=== PATIENT | male | born 1965 | race Caucasian/White ===

== ENCOUNTER → 2020-10-02 14:50 | Outpatient (BNVA) | payer OTHER, SELFPAY | PROVIDERS: PCP Internal Medicine Geriatric Medicine; Visit Provider Physician Assistant Medical | DX: S39.92XA Unspecified injury of lower back, initial encounter (principal); X58.XXXA Exposure to other specified factors, initial encounter | CPT/HCPCS: 99203 ==

== ENCOUNTER → 2020-10-16 15:16 | Outpatient (BNVA) | payer OTHER, SELFPAY | PROVIDERS: PCP Internal Medicine Geriatric Medicine; Visit Provider Physician Assistant Medical | DX: S39.92XD Unspecified injury of lower back, subsequent encounter (principal); X58.XXXD Exposure to other specified factors, subsequent encounter | CPT/HCPCS: 99213 ==

== ENCOUNTER 2020-11-04 16:00 | Outpatient (RCR) | payer OTHER, SELFPAY ==
--- NOTE | 2020-10-15 10:15 | MHC.PT.EP ---
[facility] [place] Office [place] Office [place] Office [address] Edil Saravia [address] [phone] F: [phone] F: [phone] F: [phone] F: [phone] Physical Therapy Plan of Care Date of Evaluation: Date of Surgery: Diagnosis: Assessment: Pt is a 54yo M who presents to PT with low back pain at lumbar level, and denies radiating symptoms. 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 He is limited functionally by prolonged sitting, standing, lifting, pushing, and pulling. He is an excellent candidate for skilled PT services to address current impairments and facilitate return to PLOF. Frequency and Duration: The patient will be seen 2x/week for 3 weeks Short Term Goals: Pt will be I with HEP to promote self management of symptoms. Pt will report pain 3/10 or less after functional mobility Shelter Goals: Pt will demonstrate full, pain-free ROM throughout all planes lumbar spine. Pt will tolerate standing >30 min without pain to assist with work related tasks. Pt will lift at least 10# with proper body mechanics without pain to assist with work related tasks. Treatment Plan: Modalities to reduce pain, spasms and effusion. Manual therapy to restore motion and function. Therapeutic exercise to improve strength and flexibility. Neuromuscular re-education for posture and balance. Therapeutic activities to return to functional activities of daily living. Electronically signed by: Natasha Hairston, PT, DPT Please sign and return to therapist. Thank you for your referral.
--- NOTE | 2020-11-04 18:31 | MHC.PT.DC ---
[facility] [place] Office [place] Office [place] Office [address] Edil Saravia [address] [phone] F: [phone] F: [phone] F: [phone] F: [phone] Physical Therapy Discharge Report Diagnosis: Date of Surgery: Date of Evaluation: 10/14/20 Date of Discharge: 11/04/20 Treatments to Date: 6 Cancellations to Date: No Shows to Date: Discharge Status: Achieved Goals Improved Function Independent with HEP Discharge Summary: Pt has made good improvements since SOC but has reached a functional plateau at this time. It is recommended at this time he transitions to consistent HEP and if his symptoms do not improve he is recommended to follow up with his doctor. His standing tolerance has improved to 45 minutes and he demonstrates improved squatting mechanics. He is able to run 6-8 miles with a relief of symptoms. He has printed copy of HEP with green thera band. Pt is I with HEP and is being D/C from skilled PT services this date. Pt reports no questions or concerns for PT at this time. Electronically signed by: Natasha Hairston, PT, DPT Please sign and return to therapist. Thank you for your referral.
== END 2020-11-04 18:28 | disposition home or self-care (01) ==
LOC: HO.PT 16:00
PROVIDERS: Visit Provider Physician Assistant Medical
DX: M54.5 Low back pain (principal)
CPT/HCPCS: 97110; 97161; 97530

== ENCOUNTER → 2020-11-07 15:42 | Outpatient (BNVA) | payer OTHER, SELFPAY | PROVIDERS: PCP Internal Medicine Geriatric Medicine; Visit Provider Physician Assistant Medical | DX: S34.4XXD Injury of lumbosacral plexus, subsequent encounter (principal); X58.XXXD Exposure to other specified factors, subsequent encounter | CPT/HCPCS: 99213 ==

== ENCOUNTER → 2020-11-19 15:01 | Outpatient (BNVA) | payer OTHER, SELFPAY | PROVIDERS: PCP Internal Medicine Geriatric Medicine; Visit Provider Physician Assistant Medical | DX: S33.9XXD Sprain of unspecified parts of lumbar spine and pelvis, subsequent encounter (principal); X58.XXXD Exposure to other specified factors, subsequent encounter | CPT/HCPCS: 99213 ==

== ENCOUNTER → 2020-11-21 12:57 | Outpatient (BNVA) | payer OTHER, SELFPAY | PROVIDERS: PCP Internal Medicine Geriatric Medicine; Referring Provider Internal Medicine Geriatric Medicine; Visit Provider Nurse Practitioner Family ==

== ENCOUNTER 2020-11-25 23:23 | Emergency (ER) | payer OTHER, SELFPAY ==
--- NOTE | ~2020-11-25 | CT_ITS ---
EXAMINATION: CT ABDOMEN AND PELVIS WITH CONTRAST CLINICAL INFORMATION: Left lower quadrant pain and tenderness, rule out diverticulitis COMPARISON: None TECHNIQUE: Multidetector volumetric images were obtained from the superior aspect of the liver through the pubic symphysis following administration 85 mL of Omnipaque 350 intravenous contrast. Sagittal and coronal reformatted images were obtained on the technologist's workstation. Oral contrast: No This CT examination was performed using dose optimization techniques as appropriate, variously including the following: *Automated exposure control *Adjustment of mA and/or kV according to patient size (this includes techniques or standardized protocols for targeted exams where dose is matched to indication/reason for exam; i.e. extremities or head) *Use of iterative reconstruction technique DLP: 1071 mGy-cm FINDINGS: LUNG BASES: The visualized lung bases are unremarkable. LIVER, GALLBLADDER, AND BILIARY TREE: The liver is normal in size, shape, and attenuation. No focal hepatic lesion or biliary ductal dilatation is present. The gallbladder is unremarkable with no evidence of radiopaque gallstones, gallbladder wall thickening, or obvious pericholecystic inflammatory changes. PANCREAS: Unremarkable. SPLEEN: Unremarkable. ADRENAL GLANDS: Unremarkable. KIDNEYS AND URETERS: The kidneys are normal in size, shape, and attenuation. Cyst in the region of the left renal pelvis measures approximately 2.4 cm in diameter. No hydronephrosis, hydroureter, or obstructing calculi seen. No perinephric stranding. BLADDER: Unremarkable. GASTROINTESTINAL TRACT: There is focal wall thickening and stranding in the region of diverticula in the mid descending colon, consistent with diverticulitis. No pericolonic abscess or free air is seen. Moderate amount of stool is present in the colon. No evidence of bowel obstruction. The appendix is unremarkable. No free fluid identified. ABDOMINAL WALL: No significant hernia is appreciated. LYMPH NODES: Normal. VASCULAR: Retroaortic left renal vein is noted. PELVIC VISCERA: Unremarkable. OSSEOUS STRUCTURES: Mild facet arthropathy of the lower lumbar spine. CT/CT abdomen pelvis w con IMPRESSION: Diverticulitis of the mid descending colon. No pericolonic abscess or free air. Correlation with recent or followup colonoscopy is advised to exclude an underlying mass lesion.
[2020-11-26 00:15] VITALS: BP 144/89; PULSE 64; RESP 16; TEMP 36.3; O2SAT 99; BMI 26.6
--- NOTE | 2020-11-26 00:34 | ED_ITS ---
HPI - Abdominal Pain General Chief Complaint: Abdominal Pain <Afshin Wynn MD - Last Filed: 11/26/20 00:51> Stated Complaint: abd pain <Afshin Wynn MD - Last Filed: 11/26/20 00:51> Time Seen by Provider: 11/25/20 23:48 <Afshin Wynn MD - Last Filed: 11/26/20 00:51> Source: patient <Afshin Wynn MD - Last Filed: 11/26/20 00:51> Mode of arrival: ambulatory <Afshin Wynn MD - Last Filed: 11/26/20 00:51> Limitations: no limitations <Afshin Wynn MD - Last Filed: 11/26/20 00:51> History of Present Illness HPI narrative: 55-year-old male who presents emergency department for evaluation of left lower abdominal pain. He states the pain started yesterday evening while he was at rest. The pain came on gradually and was initially 3/10 at onset. The pain has been constant and has gotten progressively worse. He states the pain is now 6/10. The pain is worse with breathing and with movement. He states that this is 1st episode of this type of pain. He denied fever but he states that he did have night sweats last night. He states he is feeling very weak and fatigued. He denied nause or vomiting. He states that he has noted some slight pain at the end of urination. He also states that he has pain with trying to move his bowels. <Afshin Wynn MD - Last Filed: 11/26/20 00:51> Related Data Home Medications: Home Medications Medication Instructions Recorded Confirmed chlorthalidone 25 mg tablet 12.5 mg PO DAILY 11/21/20 onabotulinumtoxinA 100 unit unit IM PRN 11/21/20 solution for injection (Botox) Previous Rx's Medication Instructions Recorded bisacodyl 5 mg tablet,delayed 10 mg PO ONCE 1 Days #2 tab 11/21/20 release (Dulcolax (bisacodyl)) polyethylene glycol 3350 17 238 g PO ONCE #238 g 11/21/20 gram/dose oral powder (Miralax) ciprofloxacin HCl 500 mg tablet 500 mg PO BID #20 tab 11/26/20 (Cipro) metronidazole 500 mg tablet 500 mg PO BID #20 tab 11/26/20 (Flagyl) oxycodone 5 mg tablet 5 mg PO Q6H PRN #20 tab 11/26/20 <Afshin Wynn MD - Last Filed: 11/26/20 00:51> Allergies/Adverse Reactions: Allergies Allergy/AdvReac Type Severity Reaction Status Date / Time No Known Allergies Allergy Unverified 11/21/20 13:07 [No Known Allergies*] <Afshin Wynn MD - Last Filed: 11/26/20 00:51> Review of Systems Review of Systems Yes all other systems are reviewed and are negative <Afshin Wynn MD - Last Filed: 11/26/20 00:51> Physical Exam Vital Signs: Vital Signs: Last Vital Signs Temp 97.3 F 11/26/20 00:15 Pulse 64 11/26/20 00:15 Resp 11/26/20 02:48 BP 144/89 H 11/26/20 00:15 Pulse Ox 99 11/26/20 00:15 Body Mass Index 26.6 <Afshin Wynn MD - Last Filed: 11/26/20 00:51> Vital Signs: Last Vital Signs Temp 97.3 F 11/26/20 00:15 Pulse 64 11/26/20 00:15 Resp 11/26/20 02:48 BP 144/89 H 11/26/20 00:15 Pulse Ox 99 11/26/20 00:15 Body Mass Index 26.6 <Oscar Crane MD - Last Filed: 11/26/20 03:35> Const: General: cooperative and no acute distress <Afshin Wynn MD - Last Filed: 11/26/20 00:51> Orientation/consciousness: oriented to person and oriented to place <Afshin Wynn MD - Last Filed: 11/26/20 00:51> Limitations: no limitations <Afshin Wynn MD - Last Filed: 11/26/20 00:51> HENMT: Head: Yes normal to inspection, Yes normocephalic and Yes atraumatic <Afshin Wynn MD - Last Filed: 11/26/20 00:51> Ears: external ears normal <MD Aurelio Mirza Last Filed: 11/26/20 00:51> General nose exam: Normal external nose present <MD Aurelio Mirza Last Filed: 11/26/20 00:51> Face and sinus: Yes normal facial exam <MD Aurelio Mirza Last Filed: 11/26/20 00:51> Mouth: Normal oral and palatal mucosa present <MD Aurelio Mirza Last Filed: 11/26/20 00:51> Throat: Yes posterior oropharynx normal <MD Aurelio Mirza Last Filed: 11/26/20 00:51> Eyes: General: appearance normal, both eyes and all related structures <MD Aurelio Mirza Last Filed: 11/26/20 00:51> Pupils: Equal, round and reactive pupils present <MD Aurelio Mirza Last Filed: 11/26/20 00:51> Neck: Neck: Yes normal visual inspection, Yes no lymphadenopathy, Yes trachea midline and Yes supple <MD Aurelio Mirza Last Filed: 11/26/20 00:51> Chest: Chest palpation & inspection: normal inspection of the chest and normal palpation of entire chest wall <MD Aurelio Mirza Last Filed: 11/26/20 00:51> Resp: Effort & Inspection: normal respiratory effort and able to speak in complete sentences <MD Aurelio Mirza Last Filed: 11/26/20 00:51> Auscultation: clear to auscultation bilaterally <MD Aurelio Mirza Last Filed: 11/26/20 00:51> Cardio: Rate: regular rate <MD Aurelio Mirza Last Filed: 11/26/20 00:51> Rhythm: regular rhythm <MD Aurelio Mirza Last Filed: 11/26/20 00:51> Heart sounds: S1 normal heart sound present, S2 normal heart sound present and no murmurs <MD Aurelio Mirza Last Filed: 11/26/20 00:51> GI: Inspection: Yes normal to inspection <Afshin Wynn MD - Last Filed: 11/26/20 00:51> Palpation (GI): Soft to palpation, Tenderness to palpation present (GI) in the LLQ (Moderate to severe) and no guarding <Afshin Wynn MD - Last Filed: 11/26/20 00:51> Auscultation: normal bowel sounds <Afshin Wynn MD - Last Filed: 11/26/20 00:51> : General: Yes no CVA tenderness <Afshin Wynn MD - Last Filed: 11/26/20 00:51> Back/Spine/Pelvis: Back: no CVA tenderness <Afshin Wynn MD - Last Filed: 11/26/20 00:51> Skin: General skin exam: no rashes or lesions noted <Afshin Wynn MD - Last Filed: 11/26/20 00:51> Neuro: General: oriented to person and oriented to place <Afshin Wynn MD - Last Filed: 11/26/20 00:51> Cranial nerves: Yes Equal, round and reactive pupils present <Afshin Wynn MD - Last Filed: 11/26/20 00:51> Cognition (Neuro): normal cognition <Afshin Wynn MD - Last Filed: 11/26/20 00:51> Extrem: General: Yes normal to inspection <Afshin Wynn MD - Last Filed: 11/26/20 00:51> Psych: Appearance: grossly normal <Afshin Wynn MD - Last Filed: 11/26/20 00:51> Speech and movement: Normal speech and movement present <MD Aurelio Mirza Last Filed: 11/26/20 00:51> Affect: normal affect <MD Aurelio Mirza Last Filed: 11/26/20 00:51> Attitude: cooperative <MD Aurelio Mirza Last Filed: 11/26/20 00:51> Course Course Course Narrative: 55-year-old male who presents emergency department for evaluation of left lower quadrant pain x2 days, the pain is 6 to 8/10 at its worst. Revealed slight elevation is blood pressure of 144/89 otherwise were unremarkable. On e xamination the patient had moderate to severe left lower quadrant tenderness otherwise exam was unremarkable. I ordered an abdominal pain workup to include CBC, CMP, lipase, urinalysis, CT scan of the abdomen pelvis with IV contrast. Patient's pain was treated with Toradol 30 mg IV. He is also given Zofran 4 mg IV and normal saline IV x1 L. <Afshin Wynn MD - Last Filed: 11/26/20 00:51> MDM - Abdominal Pain MDM Narrative Medical decision making narrative: CT scan showed uncomplicated descending colon diverticulitis without any fluid collection. Patient was given Zosyn in the ER discharge him on Cipro and Flagyl patient feel comfortable now <Oscar Crane MD - Last Filed: 11/26/20 03:35> Lab Data Attestation: I reviewed the patient's lab results. <Oscar Crane MD - Last Filed: 11/26/20 03:35> Result diagrams: : 11/26/20 00:49 11/26/20 00:49 <Afshin Wynn MD - Last Filed: 11/26/20 00:51> Labs: Lab Results 11/26/20 11/26/20 11/26/20 Range/Units 00:49 00:49 00:49 WBC 9.5 (4.8-10.8) X10*3/uL RBC 4.40 L (4.60-5.80) X10*6/uL Hgb 15.1 (14.0-18.0) g/dl Hct 42.0 (42-52) % MCV 95.5 (80-98) fL MCH 34.3 H (27.0-33.0) pg MCHC 36.0 (31.0-36.0) g/dl RDW 12.5 (11.0-16.0) % Plt Count 148 L (160-400) X10*3/uL MPV 10.7 (9.4-12.4) fL Immature Gran % (Auto) 0.2 (0.0-0.4) % Neut % (Auto) 56.5 (45-73) % Lymph % (Auto) 32.4 (20-40) % [place] % (Auto) 8.6 (2-11) % Eos % (Auto) 1.9 (0-4) % Baso % (Auto) 0.4 (0-2) % Lymph # (Auto) 3.1 (1.2-4.9) X10*3/uL [place] # (Auto) 0.8 (0.1-1.2) X10*3/uL Eos # (Auto) 0.2 (0.0-0.4) X10*3/uL Baso # (Auto) 0.0 (0.0-0.2) X10*3/uL Abs Immat Gran (auto) 0.02 (0.00-0.03) X10*3/uL Absolute Neuts (auto) 5.4 (2.0-8.3) X10*3/uL Absolute Nucleated RBC 0.000 (0.0-0.012) X10*3/uL Nucleated RBC % (auto) 0.0 (0.0-0.2) /100WBC Sodium 142 (135-145) mmol/L Potassium 3.5 (3.3-5.1) mmol/L Chloride 104 (96-108) mmol/L Carbon Dioxide 28 (22-29) mmol/L Anion Gap 14 (12-20) BUN 20 H (9-16) mg/dL Creatinine 1.20 (0.5-1.4) mg/dL Estim Creat Clear Calc 70.3 Estimated GFR > 60 Random Glucose 92 (60-115) mg/dL Calcium 9.2 (8.4-10.2) mg/dL Total Bilirubin 0.6 (0.0-1.0) mg/dL AST 35 (5-37) U/L ALT 36 (0-40) U/L Alkaline Phosphatase 56 (39-117) U/L Total Protein 6.7 (6.5-8.0) g/dL Albumin 4.1 (3.5-5.0) g/dL Lipase (8-78) U/L Urine Color YELLOW Urine Appearance CLEAR Urine pH 6.0 (5.0-8.0) Ur Specific [place] 1.025 (1.005-1.025) Urine Protein NEG (NEG-TRACE) MG/DL Urine Glucose (UA) NEG (NEG) MG/DL Urine Ketones NEG (NEG) MG/DL Urine Blood NEG (NEG) Urine Nitrite NEG (NEG) Ur Leukocyte Esterase NEG (NEG) 11/26/20 Range/Units 00:50 WBC (4.8-10.8) X10*3/uL RBC (4.60-5.80) X10*6/uL Hgb (14.0-18.0) g/dl Hct (42-52) % MCV (80-98) fL MCH (27.0-33.0) pg MCHC (31.0-36.0) g/dl RDW (11.0-16.0) % Plt Count (160-400) X10*3/uL MPV (9.4-12.4) fL Immature Gran % (Auto) (0.0-0.4) % Neut % (Auto) (45-73) % Lymph % (Auto) (20-40) % [place] % (Auto) (2-11) % Eos % (Auto) (0-4) % Baso % (Auto) (0-2) % Lymph # (Auto) (1.2-4.9) X10*3/uL [place] # (Auto) (0.1-1.2) X10*3/uL Eos # (Auto) (0.0-0.4) X10*3/uL Baso # (Auto) (0.0-0.2) X10*3/uL Abs Immat Gran (auto) (0.00-0.03) X10*3/uL Absolute Neuts (auto) (2.0-8.3) X10*3/uL Absolute Nucleated RBC (0.0-0.012) X10*3/uL Nucleated RBC % (auto) (0.0-0.2) /100WBC Sodium (135-145) mmol/L Potassium (3.3-5.1) mmol/L Chloride (96-108) mmol/L Carbon Dioxide (22-29) mmol/L Anion Gap (12-20) BUN (9-16) mg/dL Creatinine (0.5-1.4) mg/dL Estim Creat Clear Calc Estimated GFR Random Glucose (60-115) mg/dL Calcium (8.4-10.2) mg/dL Total Bilirubin (0.0-1.0) mg/dL AST (5-37) U/L ALT (0-40) U/L Alkaline Phosphatase (39-117) U/L Total Protein (6.5-8.0) g/dL Albumin (3.5-5.0) g/dL Lipase 29 (8-78) U/L Urine Color Urine Appearance Urine pH (5.0-8.0) Ur Specific [place] (1.005-1.025) Urine Protein (NEG-TRACE) MG/DL Urine Glucose (UA) (NEG) MG/DL Urine Ketones (NEG) MG/DL Urine Blood (NEG) Urine Nitrite (NEG) Ur Leukocyte Esterase (NEG) <Afshin Wynn MD - Last Filed: 11/26/20 00:51> Lab Results 11/26/20 11/26/20 11/26/20 Range/Units 00:49 00:49 00:49 WBC 9.5 (4.8-10.8) X10*3/uL RBC 4.40 L (4.60-5.80) X10*6/uL Hgb 15.1 (14.0-18.0) g/dl Hct 42.0 (42-52) % MCV 95.5 (80-98) fL MCH 34.3 H (27.0-33.0) pg MCHC 36.0 (31.0-36.0) g/dl RDW 12.5 (11.0-16.0) % Plt Count 148 L (160-400) X10*3/uL MPV 10.7 (9.4-12.4) fL Immature Gran % (Auto) 0.2 (0.0-0.4) % Neut % (Auto) 56.5 (45-73) % Lymph % (Auto) 32.4 (20-40) % [place] % (Auto) 8.6 (2-11) % Eos % (Auto) 1.9 (0-4) % Baso % (Auto) 0.4 (0-2) % Lymph # (Auto) 3.1 (1.2-4.9) X10*3/uL [place] # (Auto) 0.8 (0.1-1.2) X10*3/uL Eos # (Auto) 0.2 (0.0-0.4) X10*3/uL Baso # (Auto) 0.0 (0.0-0.2) X10*3/uL Abs Immat Gran (auto) 0.02 (0.00-0.03) X10*3/uL Absolute Neuts (auto) 5.4 (2.0-8.3) X10*3/uL Absolute Nucleated RBC 0.000 (0.0-0.012) X10*3/uL Nucleated RBC % (auto) 0.0 (0.0-0.2) /100WBC Sodium 142 (135-145) mmol/L Potassium 3.5 (3.3-5.1) mmol/L Chloride 104 (96-108) mmol/L Carbon Dioxide 28 (22-29) mmol/L Anion Gap 14 (12-20) BUN 20 H (9-16) mg/dL Creatinine 1.20 (0.5-1.4) mg/dL Estim Creat Clear Calc 70.3 Estimated GFR > 60 Random Glucose 92 (60-115) mg/dL Calcium 9.2 (8.4-10.2) mg/dL Total Bilirubin 0.6 (0.0-1.0) mg/dL AST 35 (5-37) U/L ALT 36 (0-40) U/L Alkaline Phosphatase 56 (39-117) U/L Total Protein 6.7 (6.5-8.0) g/dL Albumin 4.1 (3.5-5.0) g/dL Lipase (8-78) U/L Urine Color YELLOW Urine Appearance CLEAR Urine pH 6.0 (5.0-8.0) Ur Specific [place] 1.025 (1.005-1.025) Urine Protein NEG (NEG-TRACE) MG/DL Urine Glucose (UA) NEG (NEG) MG/DL Urine Ketones NEG (NEG) MG/DL Urine Blood NEG (NEG) Urine Nitrite NEG (NEG) Ur Leukocyte Esterase NEG (NEG) 11/26/20 Range/Units 00:50 WBC (4.8-10.8) X10*3/uL RBC (4.60-5.80) X10*6/uL Hgb (14.0-18.0) g/dl Hct (42-52) % MCV (80-98) fL MCH (27.0-33.0) pg MCHC (31.0-36.0) g/dl RDW (11.0-16.0) % Plt Count (160-400) X10*3/uL MPV (9.4-12.4) fL Immature Gran % (Auto) (0.0-0.4) % Neut % (Auto) (45-73) % Lymph % (Auto) (20-40) % [place] % (Auto) (2-11) % Eos % (Auto) (0-4) % Baso % (Auto) (0-2) % Lymph # (Auto) (1.2-4.9) X10*3/uL [place] # (Auto) (0.1-1.2) X10*3/uL Eos # (Auto) (0.0-0.4) X10*3/uL Baso # (Auto) (0.0-0.2) X10*3/uL Abs Immat Gran (auto) (0.00-0.03) X10*3/uL Absolute Neuts (auto) (2.0-8.3) X10*3/uL Absolute Nucleated RBC (0.0-0.012) X10*3/uL Nucleated RBC % (auto) (0.0-0.2) /100WBC Sodium (135-145) mmol/L Potassium (3.3-5.1) mmol/L Chloride (96-108) mmol/L Carbon Dioxide (22-29) mmol/L Anion Gap (12-20) BUN (9-16) mg/dL Creatinine (0.5-1.4) mg/dL Estim Creat Clear Calc Estimated GFR Random Glucose (60-115) mg/dL Calcium (8.4-10.2) mg/dL Total Bilirubin (0.0-1.0) mg/dL AST (5-37) U/L ALT (0-40) U/L Alkaline Phosphatase (39-117) U/L Total Protein (6.5-8.0) g/dL Albumin (3.5-5.0) g/dL Lipase 29 (8-78) U/L Urine Color Urine Appearance Urine pH (5.0-8.0) Ur Specific [place] (1.005-1.025) Urine Protein (NEG-TRACE) MG/DL Urine Glucose (UA) (NEG) MG/DL Urine Ketones (NEG) MG/DL Urine Blood (NEG) Urine Nitrite (NEG) Ur Leukocyte Esterase (NEG) <Oscar Crane MD - Last Filed: 11/26/20 03:35> Discharge Plan Discharge Clinical Impression: Diverticulitis <Afshin Wynn MD - Last Filed: 11/26/20 00:51> Patient Disposition: Home, Self-Care <Afshin Wynn MD - Last Filed: 11/26/20 00:51> Instructions: Diverticulitis (ED) <Afshin Wynn MD - Last Filed: 11/26/20 00:51> Additional Instructions: Clear liquids as advised advance as tolerated Antibiotic as prescribed Report to the ER/PCP if worsening of the pain/fever/vomiting <Afshin Wynn MD - Last Filed: 11/26/20 00:51> Prescriptions: New ciprofloxacin HCl [Cipro] 500 mg tablet 500 mg PO BID Qty: 20 RF: 0 metronidazole [Flagyl] 500 mg tablet 500 mg PO BID Qty: 20 RF: 0 oxycodone 5 mg tablet 5 mg PO Q6H PRN (Reason: Pain (Scale Score 7-10)) Qty: 20 RF: 0 No Action chlorthalidone 25 mg tablet 12.5 mg PO DAILY RF: 0 Botox 100 unit recon soln IM PRNRF: 0 bisacodyl [Dulcolax (bisacodyl)] 5 mg tablet,delayed release (DR/EC) 10 mg PO ONCE 1 Days Qty: 2 RF: 0 polyethylene glycol 3350 [Miralax] 17 gram/dose powder 238 g PO ONCE Qty: 238 RF: 0 <Afshin Wynn MD - Last Filed: 11/26/20 00:51> [facility] Past Medical History [facility] Narrative: Past medical history: Hypertension. Past surgical history: None. Social history: He denies tobacco use. He states that he drinks 4-5 beers over the weekend. He denies drug use. <Afshin Wynn MD - Last Filed: 11/26/20 00:51> Social History Social History: Social History Patient Tobacco Use Status: Never used Tobacco Use of substances other than those prescribed or required for medical reasons: No Advance Directives: No Advance Directives Information Provided: Yes <Afshin Wynn MD - Last Filed: 11/26/20 00:51>
[2020-11-26 00:55] LABS: MANUAL DIFF FLAG NO
[2020-11-26 00:56] LABS: Basophils Percent Auto 0.4 % (0-2); Eosinophils Absolute Auto 0.2 X10*3/uL (0.0-0.4); Eosinophils Percent Auto 1.9 % (0-4); Hemoglobin 15.1 g/dl (14.0-18.0); Imm Gran Abs Auto 0.02 X10*3/uL (0.00-0.03); Imm Gran Pct Auto 0.2 % (0.0-0.4); Lymphocytes Absolute Auto 3.1 X10*3/uL (1.2-4.9); Lymphocytes Percent Auto 32.4 % (20-40); Mean Corpuscular Hemoglobin 34.3 pg (27.0-33.0); Mean Corpuscular Volume 95.5 fL (80-98); Mean Platelet Volume 10.7 fL (9.4-12.4); Monocytes Absolute Auto 0.8 X10*3/uL (0.1-1.2); Monocytes Percent Auto 8.6 % (2-11); Neutrophils Absolute Auto 5.4 X10*3/uL (2.0-8.3); Neutrophils Percent Auto 56.5 % (45-73); Platelet Count 148 X10*3/uL (160-400); Red Cell Distribution Width 12.5 % (11.0-16.0); White Blood Count 9.5 X10*3/uL (4.8-10.8)
[2020-11-26 00:57] LABS: Appearance Urine CLEAR; Color Urine YELLOW; Glucose Urine UA NEG (NEG); Leukocyte Esterase Urine NEG (NEG); Nitrite Urine NEG (NEG); Specific Gravity - Urine 1.025 (1.005-1.025); Urine Blood NEG (NEG); Urine Ketones NEG (NEG); Urine Protein NEG (NEG-TRACE)
[2020-11-26] MEDS: 0.9 % Sodium Chloride 1,000 ML 999 ML IV (01:10)
[2020-11-26] MEDS: Ketorolac Tromethamine 15 MG/ML VIAL 30 MG IVPUSH (01:10)
[2020-11-26] MEDS: ondansetron HCL 4 MG/2 ML VIAL IVPUSH (01:11)
[2020-11-26 01:16] LABS: Alanine Aminotransferase 36 U/L (0-40); Albumin Level 4.1 g/dL (3.5-5.0); Alkaline Phosphatase 56 U/L (39-117); Anion Gap 14 (12-20); Aspartate Amino Transferase 35 U/L (5-37); Bilirubin Total 0.6 mg/dL (0.0-1.0); Blood Urea Nitrogen 20 mg/dL (9-16); Calcium 9.2 mg/dL (8.4-10.2); Carbon Dioxide 28 mmol/L (22-29); Chloride 104 mmol/L (96-108); Creatinine Clr Calc Pharmacy 70.3; Estimated Glomerular Filt Rate > 60; Glucose Random 92 mg/dL (60-115); Potassium 3.5 mmol/L (3.3-5.1); Sodium 142 mmol/L (135-145); Total Protein 6.7 g/dL (6.5-8.0)
[2020-11-26 01:17] LABS: Lipase 29 U/L (8-78)
[2020-11-26] MEDS: iohexoL 350 MG/ML 100 ML INFUS..BTL 85 ML IV (02:21)
[2020-11-26 02:48] VITALS: RESP 15
[2020-11-26] MEDS: Morphine Sulfate 4 MG/ML CARTRIDGE IVPUSH (02:48)
[2020-11-26] MEDS: Piperacillin Sodium/Tazobactam 3.375 GM in 0.9 % Sodium Chloride 50 ML IV (02:48)
== END 2020-11-26 03:43 | disposition home or self-care (01) ==
PROVIDERS: Emergency Provider Emergency Medicine Emergency Medical Services; PCP Internal Medicine Geriatric Medicine
DX: K57.32 Diverticulitis of large intestine without perforation or abscess without bleeding (principal); R10.32 Left lower quadrant pain; Z79.899 Other long term (current) drug therapy
CPT/HCPCS: 36415; 74177; 80053; 81003; 83690; 85025; 96361; 96365; 96375; 99284; J1885; J2270; J2405; J2543; Q9967

== ENCOUNTER 2020-11-27 17:54 | Outpatient (REF) | payer OTHER, SELFPAY ==
--- NOTE | ~2020-11-27 | MR_ITS ---
EXAMINATION: MR LUMBAR SPINE WITHOUT CONTRAST CLINICAL INFORMATION: Lower back pain for 2-3 months. COMPARISON: Lumbar spine CT dated 01/14/2018. CT abdomen/pelvis dated 11/26/2020. TECHNIQUE: MRI of the lumbar spine was obtained using routine sequences without contrast. FINDINGS: VERTEBRAL BODIES AND PARASPINAL STRUCTURES: Normal vertebral body alignment. The lumbar lordosis is maintained. No acute fracture or subluxation. No loss of vertebral body height. Mild loss of intervertebral disc height with disc desiccation at L2-S1. Decreased T1/T2 marrow signal throughout the visualized osseous structures, which can be seen in the setting of marrow reconversion. This can be seen in response to physiologic stimuli such as obesity, cigarette smoking, and heavy athletic training or a pathologic condition such as chronic hemolytic anemia and marrow replacing disorders. Modic type II degenerative endplate changes at L4-L5. No marrow edema to suggest acute osseous injury. Left renal parapelvic cyst, unchanged. Findings are not clinically significant and no follow-up imaging is recommended. Otherwise, the visualized paraspinal soft tissues are unremarkable. CONUS MEDULLARIS AND CAUDA EQUINA: Normal, terminating at the level of L1. SPINAL LEVELS: T12-L1: No significant disc bulge. No central canal or neural foraminal stenosis. L1-L2: No significant disc bulge. No central canal or neural foraminal stenosis. L2-L3: Mild broad-based disc bulge with a superimposed right extraforaminal disc protrusion which contacts the exiting right L2 nerve root. Bilateral facet arthropathy with rqux-un-hhbqcenl right neural foraminal stenosis. L3-L4: Mild broad-based disc bulge with a superimposed left extraforaminal disc protrusion which abuts the exiting left L3 nerve root. Bilateral facet arthropathy with spdl-ju-gbhdpnds left and mild right neural foraminal stenosis. L4-L5: Broad-based disc bulge with a superimposed left extraforaminal disc protrusion which abuts the exiting left L4 nerve root. Severe bilateral facet arthropathy and thickening of the ligamentum flavum causing hlofnkbe-xx-mvvgwo central canal stenosis as well as cykembci-jw-npvqoc left and moderate right neural foraminal stenosis. L5-S1: Broad-based disc bulge with a shallow posterior central disc protrusion and posterior annular fissuring as well as bilateral facet arthropathy and thickening of the ligamentum flavum causing mild central canal stenosis as well as obftagbk-wt-jxvglm bilateral neural foraminal stenosis. MR/MR lumbar spine wo con IMPRESSION: 1. Broad-based disc bulge at L4-L5 with a left extraforaminal disc protrusion abutting the exiting left L4 nerve root. Severe bilateral facet arthropathy and thickening of the ligamentum flavum causing wjplwnod-fb-ovcybh central canal stenosis as well as xoxgjobi-tm-tohjgb left and moderate right neural foraminal stenosis. 2. Broad-based disc bulge at L5-S1 with a shallow posterior central disc protrusion and annular fissuring as well as bilateral facet arthropathy and thickening of the ligamentum flavum which causes mild central canal stenosis and hiflrxuj-ve-ntlunx bilateral neural foraminal stenosis. 3. Broad-based disc bulge at L3-L4 with a left extra foraminal disc protrusion abutting the exiting left L3 nerve root. Bilateral facet arthropathy with ydwr-dc-uaznzkux left and mild right neural foraminal stenosis. 4. Broad-based disc bulge at L2-L3 with a superimposed right extraforaminal disc protrusion contacting the exiting right L2 nerve root. Bilateral facet arthropathy with rizv-pp-xncevddt right neural foraminal stenosis.
== END 2020-11-27 17:55 | disposition home or self-care (01) ==
LOC: HO.MRI 17:54
PROVIDERS: PCP Internal Medicine Geriatric Medicine; Visit Provider Internal Medicine
DX: M54.5 Low back pain (principal)
CPT/HCPCS: 72148

== ENCOUNTER → 2020-12-24 15:34 | Outpatient (BNVA) | payer OTHER, SELFPAY | PROVIDERS: PCP Internal Medicine Geriatric Medicine; Visit Provider Physician Assistant Medical | DX: S39.92XD Unspecified injury of lower back, subsequent encounter (principal); X58.XXXD Exposure to other specified factors, subsequent encounter | CPT/HCPCS: 99213 ==

== ENCOUNTER 2021-02-23 09:13 | Day surgery (SDC) | payer OTHER, SELFPAY ==
[2021-01-05 14:48] VITALS: BMI 27.6
[2021-02-23 09:30] VITALS: BP 135/91; PULSE 76; RESP 16; TEMP 36.5; O2SAT 98
--- NOTE | 2021-02-23 09:43 | P.CONAN_ITS ---
COUNTS INCLUDE 234 BEDS AT THE [facility] Past Medical History Medical History Back pain History of fatty infiltration of liver HTN (hypertension) DAVID on CPAP Surgical History History of Problems with Anesthesia: No Social History Social History Are you a primary nurse care manager to a significant other at home: No Do you presently have visiting nurse or other home services: No Patient Tobacco Use Status: Never used Tobacco Use of substances other than those prescribed or required for medical reasons: No Have you been hit, kicked, punched, or otherwise hurt by someone within the past year? If so, by whom?: No Are you DNR?: No Advance Directives: No Advance Directives Information Provided: No Advance Directives on File: No Recently lost weight without trying: No Eating poorly because of decreased appetite: No Nutrition Risks: No Nutritional Risk Meds Allergies Allergy/AdvReac Type Severity Reaction Status Date / Time No Known Allergies Allergy Unverified 02/16/21 13:42 [No Known Allergies*] Home Medications Medication Instructions Recorded Confirmed Last Taken Type chlorthalidone 25 mg tablet 12.5 mg PO DAILY 11/21/20 01/05/21 Unknown History onabotulinumtoxinA 100 unit unit IM PRN 11/21/20 Unknown History solution for injection (Botox) fluticasone propionate 50 1 spray INTRANASAL DAILY 01/05/21 01/05/21 Unknown History mcg/actuation nasal spray,suspension folic acid 1 mg tablet 1 mg PO DAILY 01/05/21 01/05/21 Unknown History Exam Exam Date and Time: February 23, 2021 0943 Height,Weight and Vital Signs: Height 5 ft 9 in Weight 84.822 kg Last Vital Signs Temp 97.7 F 02/23/21 09:30 Pulse 76 02/23/21 09:30 Resp 16 02/23/21 09:30 BP 135/91 H 02/23/21 09:30 Pulse Ox 98 02/23/21 09:30 Airway Mallampati Class: II TM Dist: >3cm Neck ROM: Full Loose/Missing/Broken Teeth: No Heart: RRR Lungs: CTA Assessment and Plan Final Anesthetic Review History of Problems with Anesthesia: No NPO: Yes ASA Class: II Final Preanesthetic Review: Meds/Allgs Chart Reviewed, Consent Obtained/Reviewed and Anes Risks/Benef Reviewed Patient Risk: Low Procedure Risk: Low Anesthetic Plan Anesthetic Plan: MAC: Disposition: Standard PACU
[2021-02-23] MEDS: Lactated Ringers 1,000 ML 50 ML IVCONT (09:45)
--- NOTE | 2021-02-23 10:23 | P.HPSUR_ITS ---
Pre-Procedural Eval Section A Date of Service: 02/23/21 The patient is an INPATIENT: No The History & Physical has been completed within 30 days and I have reviewed it.: No Section B Chief Complaint: Screening Details of Present Illness: Colon cancer screening Relevant Family History (Specify if Yes): No Relevant Social History: None Present Medications: see Short Stay Collaborative assessment Medical History: Significant History (Back pain, DAVID, hx of fatty liver) History of Previous Operations: No relevant previous surgery Allergies: Allergies Allergy/AdvReac Type Severity Reaction Status Date / Time No Known Allergies Allergy Unverified 02/16/21 13:42 [No Known Allergies*] Review of Systems Sugical H&P ROS: Negative: Constitution, Cardiovascular, Respiratory and Gastro intestinal Exam Surgical H&P Exam: Normal: Heart, Normal: Lungs and Normal: Abdomen Plan Diagnosis/Plan: Unchanged I have reviewed the history and physical and performed a pertinent physical examination on my patient. No changes have occurred unless specified.
--- NOTE | 2021-02-23 10:39 | W.PM.OPN ---
Operative Note Operative Note Date of Service: 02/23/21 Narrative: Pre-op diagnosis:?Colon cancer screening Post-op diagnosis:?other (Colon polyps, diverticulosis, hemorrhoids) Procedure:? COLONOSCOPY TILL CECUM WITH BIOPSIES AND SNARE POLYPECTOMY Consent: Indications for the procedure and potential complications of bleeding, perforation, reaction to medications and missed diagnosis were discussed with the patient and informed consent was obtained. Instrument: Olympus PCF H 190 L variable stiffness pediatric colonoscope Monitoring: Vital signs and clinical assessment, intermittent blood pressure monitoring, continuous EKG monitoring, Pulse oximetry and Carbon Dioxide monitoring were done throughout the procedure. Colon withdrawl time was 19 minutes. Procedure: The patient was placed in the left lateral decubitis position and pre-procedure medications were administered. After a digital rectal examination of the ano-rectum, the video colonoscope was inserted into the rectum and advanced through the colon to the cecum. The colonoscope was slowly withdrawn in a retrograde panoramic fashion and the colon mucosa was carefully examined including a retroflexed view of the rectum. Findings and interventions are described below. Procedure Difficulty: Without difficulty Findings: Terminal Ileum: Not evaluated Cecum:? Normal Ascending Colon:? Normal Transverse Colon:? A 7-8 mm sessile polyp removed with a cold snare. Descending Colon:? Moderate diverticulosis Sigmoid Colon:? A few 4-5 mm diminutive appearing polyps in the recto-sigmoid - one removed with a cold bx.? Moderate diverticulosis Rectum:? Normal Ano-rectum:? Moderate internal hemorrhoids Colon preparation:? Good after some irrigation Impression and Post Procedure Diagnosis: Colonoscopy Findings: Two small polyps removed Moderate diverticulosis seen in the left colon Moderate hemorrhoids on retroflexed exam. Plan: Await pathology results Patient has an appointment on 02/23/21 in the GI Clinic with Emilia Gaytan FNP-BC. Repeat Colonoscopy interval based on path results - in 5 years if polyps are adenomatous and 10 years if polyps are hyperplastic. Above findings were reviewed with the patient and colon polyps and diverticulosis handouts were given in the discharge area Surgeon:?Venita Edgar MD Anesthesia:?MAC (Dr Boateng) Was an Drive In Waiter/Waitress used for this Procedure?:?Yes Drive In Waiter/Waitress:?Lilia Delacruz Estimated blood loss (mL):?0 Pathology:?other (A. transverse colon polyp? B. sigmoid polyp) Condition:?stable Disposition:?PACU
[2021-02-23 11:15] VITALS: BP 122/80; PULSE 65; RESP 18; TEMP 36.3; O2SAT 99
[2021-02-23 11:30] VITALS: BP 123/87; PULSE 57; RESP 18; TEMP 36.4; O2SAT 99
== END 2021-02-23 12:05 | disposition home or self-care (01) ==
PROVIDERS: PCP Internal Medicine Geriatric Medicine; Visit Provider Internal Medicine Gastroenterology
PROC: 0DJD8ZZ Inspection of Lower Intestinal Tract, Via Natural or Artificial Opening Endoscopic (ICD-10-PCS; CPT 45378; principal; 2021-02-23 11:00)
DX: Z12.11 Encounter for screening for malignant neoplasm of colon (principal); D12.3 Benign neoplasm of transverse colon; K63.5 Polyp of colon; K57.30 Diverticulosis of large intestine without perforation or abscess without bleeding; K64.8 Other hemorrhoids; K76.0 Fatty (change of) liver, not elsewhere classified; G47.33 Obstructive sleep apnea (adult) (pediatric); Z99.89 Dependence on other enabling machines and devices
CPT/HCPCS: 45385; 45380; 88305

== ENCOUNTER 2022-09-28 08:07 | Outpatient (REF) | payer OTHER, SELFPAY ==
[2022-09-28 12:21] LABS: Anion Gap 10 (12-20); Blood Urea Nitrogen 17 mg/dL (9-16); Calcium 9.2 mg/dL (8.4-10.2); Carbon Dioxide 30 mmol/L (22-29); Chloride 106 mmol/L (96-108); Cholesterol 217 mg/dL; Estimated Glomerular Filt Rate > 60; Glucose Random 94 mg/dL (60-115); HDL Cholesterol 52 mg/dL; LDL Cholesterol Calculated 143 mg/dl; Potassium 3.5 mmol/L (3.3-5.1); Sodium 142 mmol/L (135-145); Triglycerides 110 mg/dL
== END 2022-09-28 08:08 | disposition home or self-care (01) ==
LOC: HO.HHCL 08:07
PROVIDERS: Visit Provider Internal Medicine Geriatric Medicine
DX: I10 Essential (primary) hypertension (principal); Z13.220 Encounter for screening for lipoid disorders
CPT/HCPCS: 36415; 80048; 80061

== ENCOUNTER 2023-06-28 08:48 | Outpatient (REF) | payer OTHER, SELFPAY ==
[2023-06-28 11:34] LABS: MANUAL DIFF FLAG NO
[2023-06-28 11:45] LABS: Basophils Absolute Auto 0.1 X10*3/uL (0.0-0.2); Basophils Percent Auto 0.8 % (0-2); Eosinophils Absolute Auto 0.2 X10*3/uL (0.0-0.4); Eosinophils Percent Auto 2.7 % (0-4); Hemoglobin 16.1 g/dl (14.0-18.0); Imm Gran Abs Auto 0.01 X10*3/uL (0.00-0.03); Imm Gran Pct Auto 0.2 % (0.0-0.4); Lymphocytes Absolute Auto 2.4 X10*3/uL (1.2-4.9); Lymphocytes Percent Auto 35.8 % (20-40); Mean Corpuscular Hemoglobin 33.3 pg (27.0-33.0); Mean Corpuscular Volume 95.2 fL (80.0-98.0); Mean Platelet Volume 11.2 fL (9.4-12.4); Monocytes Absolute Auto 0.6 X10*3/uL (0.1-1.2); Neutrophils Absolute Auto 3.4 x10*3/uL (2.0-8.3); Neutrophils Percent Auto 51.5 % (45-73); Platelet Count 166 X10*3/uL (160-400); Red Blood Count 4.83 X10*6/uL (4.60-5.80); Red Cell Distribution Width 12.7 % (11.0-16.0); White Blood Count 6.7 X10*3/uL (4.8-10.8)
[2023-06-28 12:38] LABS: Alanine Aminotransferase 34 U/L (0-40); Albumin Level 4.3 g/dL (3.5-5.0); Alkaline Phosphatase 52 U/L (39-117); Anion Gap 10 (12-20); Aspartate Amino Transferase 34 U/L (5-37); Bilirubin Total 1.6 mg/dL (0.0-1.0); Blood Urea Nitrogen 20 mg/dL (9-16); Calcium 9.4 mg/dL (8.4-10.2); Carbon Dioxide 31 mmol/L (22-29); Chloride 106 mmol/L (96-108); Cholesterol 228 mg/dL (<200); Estimated Glomerular Filt Rate > 60; Glucose Random 96 mg/dL (60-115); HDL Cholesterol 54 mg/dL (>40); LDL Cholesterol Calculated 158 mg/dL (<100); Potassium 4.1 mmol/L (3.3-5.1); Sodium 143 mmol/L (135-145); Total Protein 7.5 g/dL (6.5-8.0); Triglycerides 83 mg/dL (<150)
[2023-06-28 13:06] LABS: Prostate Specific Antigen 0.83 ng/mL (<0.05-4.0)
== END 2023-06-28 08:49 | disposition home or self-care (01) ==
LOC: HO.HHCL 08:48
PROVIDERS: Visit Provider Internal Medicine Geriatric Medicine
DX: Z12.5 Encounter for screening for malignant neoplasm of prostate (principal); Z13.1 Encounter for screening for diabetes mellitus; Z13.220 Encounter for screening for lipoid disorders; I10 Essential (primary) hypertension
CPT/HCPCS: 36415; 80053; 80061; 84153; 85025

== ENCOUNTER 2023-11-11 08:47 | Outpatient (REF) | payer OTHER, SELFPAY ==
[2023-11-11 11:27] LABS: MANUAL DIFF FLAG NO
[2023-11-11 11:31] LABS: Basophils Absolute Auto 0.1 X10*3/uL (0.0-0.2); Basophils Percent Auto 0.8 % (0-2); Eosinophils Absolute Auto 0.1 X10*3/uL (0.0-0.4); Eosinophils Percent Auto 1.9 % (0-4); Hematocrit 44.2 % (42.0-52.0); Hemoglobin 15.5 g/dl (14.0-18.0); Imm Gran Abs Auto 0.01 X10*3/uL (0.00-0.03); Imm Gran Pct Auto 0.2 % (0.0-0.4); Lymphocytes Absolute Auto 2.1 X10*3/uL (1.2-4.9); Lymphocytes Percent Auto 32.4 % (20-40); Mean Corpuscular HGB Conc 35.1 g/dl (31.0-36.0); Mean Corpuscular Hemoglobin 33.5 pg (27.0-33.0); Mean Corpuscular Volume 95.5 fL (80.0-98.0); Mean Platelet Volume 11.3 fL (9.4-12.4); Monocytes Absolute Auto 0.6 X10*3/uL (0.1-1.2); Monocytes Percent Auto 8.6 % (2-11); Neutrophils Absolute Auto 3.6 x10*3/uL (2.0-8.3); Neutrophils Percent Auto 56.1 % (45-73); Platelet Count 153 X10*3/uL (160-400); Red Blood Count 4.63 X10*6/uL (4.60-5.80); Red Cell Distribution Width 12.9 % (11.0-16.0); White Blood Count 6.4 X10*3/uL (4.8-10.8)
[2023-11-11 12:11] LABS: Alanine Aminotransferase 43 U/L (0-40); Albumin Level 4.3 g/dL (3.5-5.0); Alkaline Phosphatase 49 U/L (39-117); Anion Gap 11 (12-20); Aspartate Amino Transferase 32 U/L (5-37); Bilirubin Direct 0.4 mg/dL (0.0-0.5); Bilirubin Total 1.4 mg/dL (0.0-1.0); Blood Urea Nitrogen 18 mg/dL (9-16); Calcium 9.3 mg/dL (8.4-10.2); Carbon Dioxide 27 mmol/L (22-29); Chloride 107 mmol/L (96-108); Cholesterol 230 mg/dL (<200); Estimated Glomerular Filt Rate > 60; Glucose Random 96 mg/dL (60-115); HDL Cholesterol 56 mg/dL (>40); LDL Cholesterol Calculated 158 mg/dL (<100); Potassium 3.8 mmol/L (3.3-5.1); Sodium 141 mmol/L (135-145); Total Protein 7.4 g/dL (6.5-8.0); Triglycerides 83 mg/dL (<150)
== END 2023-11-11 08:48 | disposition home or self-care (01) ==
LOC: HO.HHCL 08:47
PROVIDERS: Visit Provider Internal Medicine Geriatric Medicine
DX: I10 Essential (primary) hypertension (principal); R17 Unspecified jaundice; E78.00 Pure hypercholesterolemia, unspecified
CPT/HCPCS: 36415; 80048; 80061; 80076; 85025

== ENCOUNTER 2024-01-02 09:23 | Outpatient (REF) | payer OTHER, SELFPAY ==
[2024-01-02 12:06] LABS: Alanine Aminotransferase 49 U/L (0-40); Albumin Level 4.4 g/dL (3.5-5.0); Alkaline Phosphatase 59 U/L (39-117); Anion Gap 8 (12-20); Aspartate Amino Transferase 46 U/L (5-37); Bilirubin Total 1.6 mg/dL (0.0-1.0); Blood Urea Nitrogen 15 mg/dL (9-16); Calcium 8.6 mg/dL (8.4-10.2); Carbon Dioxide 30 mmol/L (22-29); Chloride 107 mmol/L (96-108); Cholesterol 206 mg/dL (<200); Estimated Glomerular Filt Rate > 60; Glucose Random 91 mg/dL (60-115); HDL Cholesterol 48 mg/dL (>40); LDL Cholesterol Calculated 128 mg/dL (<100); Potassium 3.6 mmol/L (3.3-5.1); Sodium 141 mmol/L (135-145); Total Protein 7.3 g/dL (6.5-8.0); Triglycerides 152 mg/dL (<150)
== END 2024-01-02 09:24 | disposition home or self-care (01) ==
LOC: HO.HHCL 09:23
PROVIDERS: Visit Provider Internal Medicine Geriatric Medicine
DX: E78.00 Pure hypercholesterolemia, unspecified (principal)
CPT/HCPCS: 36415; 80053; 80061

== ENCOUNTER 2024-05-15 09:12 | Outpatient (REF) | payer OTHER, SELFPAY ==
--- OUTSIDE RECORDS SUMMARY | 2024-05-15 10:14 | XMS_ITS | Clinical Summary ---
Author Organization [employer] Address [address] [facility] [address] [place] [address] Care Team Providers Care Analyst Competitive Intelligence Name Role Phone Name, Alvarez DOMINIQUE Primary Care Provider [phone] Allergies No known active allergies Medications Botox 100 units injection 3 Active Blood Pressure kitIndications:Es sential hypertension Use twice a day 1 kit 4 Active losartan (Cozaar) 100 MG tabletIndications :Essential hypertension Take 1 tablet (100 mg) by mouth Once per day. 30 tablet 11 5 04/30/19 26 Active losartan (Cozaar) 50 MG tablet Take 1 tablet (50 mg) by mouth Once per day. 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 Patient was treated in [place] and had a negative cardiac cath Encounters Date Type Department Care Team Description 05/09/2024 9:30 AM EST Clinical Support [facility] [address] Marguerite Trivedi, JENY Essential hypertension [I10] 05/09/2024 Telephone [place] [address] Marguerite Trivedi RN 05/09/2024 Travel 04/30/2024 Telephone [facility] MIRACLE Aguero [phone] Alvarez Kinney MD 04/30/2024 Orders Only [place] [address] Alvarez Kinney MD Essential hypertension (Primary Dx) 04/25/2024 11:30 AM EST Telemedicine [place] [address] Alvarez Kinney MD Clonic hemifacial spasm of muscle of left side of face (Primary Dx) 04/25/2024 Travel 04/25/2024 Telephone [place] [address] Marlo Dejesus MA CHART PREP 04/10/2024 9:15 AM EST Office Visit [place] [address] Zenobia Mina MD Facial spasm (Primary Dx) 04/10/2024 Travel 03/05/2024 Telephone [place] [address] Diana Valdovinos MA tomas recalls 02/17/2024 Telephone [facility] [place] [address] Marguerite Trivedi, RN from Last 3 Months Immunizations Name Administration Dates Next Due Influenza Injectable Quadriv alant Preservative Free IIV4 MDCK 11/19/2021,11/20/2020,11/19/2020,2019 Influenza injectable quadriv alent IIV4 with preservative 11/16/2017 Influenza injectable quadriv alent preservative free 01/18/2023,12/15/2018 Influenza, IIV3, injectable 11/22/2012 Influenza, seasonal, injecta ble, preservative free 11/16/2023 Moderna Covid-19 Vaccine 12+ 07/27/2021, 02/03/2021,03/31/2020,2019 Tdap 08/11/2021,08/11/2011 Zoster, Recombinant 01/16/2019,11/09/2018 Social History Tobacco Use Types Packs/Day Years Used Date Smoking Tobacco: Never Passive Smoke Exposure: Never Smokeless Tobacco: Never Tobacco Cessation:Counseling Given: Not Answered Alcohol Use Standard Drinks/Week Comments Yes 3 (1 standard drink = 0.6 oz pur e alcohol) Alcohol Answer Date Recorded Frequency of Alcohol Consumption Not on file 10/25/2023 Average Number of Drinks Not on file 024 Frequency of Binge Drinking Not on file 10/06 Score 0 10/25/2023 Depression Answer Date Recorded Patient Health Questionnaire-9 Score 0 10/25/2023 Patient Health Questionnaire-9 Score 0 10/25/2023 Last PHQ-9: Questionnaire Data Not on file 0 10/25/2023 Housing Stability Answer Date Recorded What is your housing situation today? I have sachin alberts 10/25/[address] you li ve. Do you have problems with any of the following? None of the above 10/25/2023 Food Insecurity Answer Date Recorded Within the past 12 months, y ou worried that your food would run out before you got money to buy more: Never True 10/25/2023 Within the past 12 months,th e food you bought just didn't last and you didn't have enough money to get more: Never True Transportation Answer Date Recorded In the past 12 months, has l ack of transportation kept you from medical appts, meetings, work or from getting things needed for daily living? No 10/25/2023 Utilities Answer Date Recorded In the past 12 months, has t he electric, gas, oil or water company threatened to shut off services in your home? No 10/25/2023 Depression Answer Date Recorded Patient Health Questionnaire-2 Score 0 10/25/2023 Internet Access Answer Date Recorded Internet Access Q1 No 11/07/2023 Internet Access Q2 I do not want or need it 04/2023 Sex and Gender Information Value Date Recorded Sex Assigned at Male 01/04/2022 10:16 AM EDT Legal Sex Male 10:16 AM EDT Gender Identity Male 01/04/2022 10:16 AM EDT Sexual Orientation Straight 01/04/2022 10 :16 AM EDT Last Filed Vital Signs Vital Sign Reading Time Taken Comments Blood Pressure 132/98 05/09/2024 9:33 AM EST Pulse 85 05/09/2024 9:33 AM EST Temperature 37.4 ??C (99.3 ??F) 05/09/2024 9:32 AM ES T Respiratory Rate 18 05/09/2024 9:32 AM EST Oxygen Saturation 96% 05/09/2024 9:32 AM EST Inhaled Oxygen Concentration - - Weight 90.4 kg (199 lb 6.4 oz) 05/09/2024 9:32 A M EST Height 174 cm (5' 8.5 ) 05/09/2024 9:32 AM EST Body Mass Index 29.88 05/09/2024 9:32 AM EST Plan of Treatment Upcoming Encounters Date Type Department Care Team (Late st Contact Info) Description 05/29/2024 10:00 AM EDT Office Visit [facility] [address] [place] [id number] Name, MD Alvarez [address] [place] [phone] Health Maintenance Due Date Last Done Comments CT Colonography 1966 Dental X-Ray: Full Mouth 1966 FIT DNA/Cologuard 1966 FIT 1966 FOBT 1966 HIV Screening 1966 Sigmoidoscopy 1966 Hepatitis C Screening 1984 Hepatitis B Vaccines (1 of 3 - 19+ 3-dose series) 1985 Pneumococcal Vaccine: 50+ Years (1 of 1 - PCV) 2016 Dental Oral Exam 08/12/2022 02/10/2022 Dental Prophylaxis 12/05/2022 06/04/2022, 02/10/2022 Dental X-Ray: Bitewings 02/11/2023 02/10/2022 COVID-19 Vaccine ( season) 2023 07/27/2021, 02/03/2021, 03/31/2020, Additional history exists Alcohol/Substance Use Screening 10/24/2024 10/25/2023 Depression Screening 10/24/2024 10/25/2023, 10/25/19 SDOH Screening 10/24/2024 10/25/2023 Tobacco Screening 04/25/2025 04/25/2024 Colonoscopy 02/23/2026 02/23/2021 Colorectal Cancer Screening 02/23/2026 Lipid Panel 01/01/2029 01/02/2024, 0908/2023, 06/28/2023, Additional history exists DTaP/Tdap/Td Vaccines (3 - Td or Tdap) 08/12/2031 08/11/2021, 08/11/2011 RSV Patients and Patients Aged 60 years or older (1 - 1-dose 75+ series) 2041 Zoster Vaccines Completed 01/16/2019, 11/09/2018 Influenza Vaccine Completed 11/16/2023, , 11/19/2021, Additional history exists HIB Vaccines Aged Out No longer eligi ble based on patient's age to complete this topic HPV Vaccines Aged Out No longer eligi ble based on patient's age to complete this topic Hepatitis A Vaccines Aged Out No long er eligible based on patient's age to complete this topic IPV Vaccines Aged Out No longer eligi ble based on patient's age to complete this topic Meningococcal Vaccine Aged Out No susy elli eligible based on patient's age to complete this topic RSV under 20 months Aged Out No longe r eligible based on patient's age to complete this topic Rotavirus Vaccines Aged Out No longer eligible based on patient's age to complete this topic Procedures Procedure Name Priority Date/Time Associated Diagnosis Comments LIPID PANEL, STANDARD Routine 01/02/2024 9:24 AM EDT High cholesterol PROPHYLAXIS - ADULT Routine 06/04/2022 2 :00 PM EDT Dental plaque on multiple teeth BITEWINGS - 4 RADIOGRAPHIC IMAGES Routine 02/10/2022 2:30 PM EST PERIODIC ORAL EVALUATION - ESTABLISHED PATIENT Routine 02/10/2022 2:30 PM EST HM COLONOSCOPY Routine 02/23/2021 from Last 3 Months or Most Recently Relevant to Health Maintenance Results * (ABNORMAL) Lipid Panel, Standard (01/02/2024 9:24 AM EDT) Triglycerides 152(H) <150 mg/dL [facility] Comment:Desirable Triglyceri de: less than 150 mg/dLBorderline High Triglyceride 150-199 mg/dLHigh Triglyceride: 200-499 mg/dLVery High Triglyceride: greater than or equal to 5OO mg/dL Cholesterol 206(H) <200 mg/dL [facility] Comment:Desirable Cholestero l: less than 200 mg/dLBorderline High Cholesterol: 200-239 mg/dLHigh Cholesterol: greater than 239 mg/dL LDL Cholesterol Calculated 128(H) <100 mg/dL [facility] Comment:Desirable LDL: less than 100 mg/dLNear Optimal/Above Optimal LDL: 110- 129 mg/dLBorderline High LDL: 130-159 mg/dLHigh LDL: 160-189 mg/dLVery High LDL: greater than or equal to 190 mg/dL HDL Cholesterol 48 >40 mg/dL [facility] Comment:Desirable HDL: great er than 40 mg/dL Note: This HDL assay may give artificially low results in patients with liver disease. Blood Venous blood specimen / Unknown 01/02/2024 9:24 AM EDT 01/02/2024 11:05 AM EDT Alvarez Kinney MD LAB BLOOD ORDERABLES Final Resul t [facility] [address] [place] [phone] * (ABNORMAL) Colonoscopy (02/23/2021) Colonoscopy Abnormal(A ) Normal Venita Edgar MD HEALTH MAINTENANCE Final Result from Last 3 Months or Most Recently Relevant to Health Maintenance Insurance [facility] , [address] [place] [address] DENTAL - [facility] Care Teams Analyst Competitive Intelligence Relationship Specialty Start Date End Date Name, MD Alvarez [address] [place] [address] PCP - General Family Medicine 04/28/15
--- OUTSIDE RECORDS SUMMARY | 2024-05-15 10:14 | XMS_ITS | Encounter Summary ---
Author Organization [employer] Address [address] [place] [address] Care Team Providers Care In Service Coordinator Name Role Phone Name, Alvarez DOMINIQUE Primary Care Provider [phone] Encounter Details Date Type Department Care Team (Latest Contact Info) Description 05/09/2024 Travel Social History Tobacco Use Types Packs/Day Years Used Date Smoking Tobacco: Never Passive Smoke Exposure: Never Smokeless Tobacco: Never Alcohol Use Standard Drinks/Week Comments Yes 3 [...] Orientation Straight 01/04/2022 10 :16 AM EDT documented as of this encounter Plan of Treatment Upcoming Encounters Date Type Department Care Team (Late st Contact Info) Description 05/29/2024 10:00 AM EDT Office Visit [facility] [address] [place] [address] Name, MD Alvarez [address] [place] [address] documented as of this encounter Visit Diagnoses Not on filedocumented in this encounter Additional Health Concerns Assessment Noted Time PHQ-9 Depression Total Score: 0 10/25/19 24 2:28 PM EDT documented as of this encounter Care Teams In Service Coordinator Relationship Specialty Start Date End Date NameAlvarez MD [address] [place] [address] PCP - General Family Medicine 04/28/15 documented as of this encounter
--- OUTSIDE RECORDS SUMMARY | 2024-05-15 10:14 | XMS_ITS | Encounter Summary ---
Author Organization [employer] Address [address] [place] [address] Care Team Providers Care River Driver Name Role Phone Name, Alvarez DOMINIQUE Primary Care Provider [phone] Encounter Details Date Type Department Care Team ([facility] st Contact Info) Description 05/09/2024 Telephone [facility] [address] [place], [place] [phone] Marguerite Trivedi RN Social History Tobacco Use Types Packs/Day Years [...] AM EDT documented as of this encounter Miscellaneous Notes * Telephone Encounter - Marguerite Trivedi RN - 05/09/2024 3:32 PM EST Tc to pt to let them know per PCP His blood pressure is better. I would not change anything todaybut I want him to check it at home for a few days. If the blood pressure is high at home I could add low-dose diuretic to his medications. Ask him to check it for a few days. He can bring me the readings when he can. Pt verbalized understanding and no further questions or concerns at this time. * Telephone Encounter - Marguerite Trivedi RN - 05/09/2024 3:31 PM EST ----- Message from Alvarez Kinney MD sent at 05/09/2024 12:08 PM EST ----- His blood pressure is better. I would not change anything today but I want him to check it at home for a few days. If the blood pressure is high at home I could add low-dose diuretic to his medications. Ask him to check it for a few days. He can bring me the readings when he can. ----- Message ----- From: Marguerite Trivedi RN Sent: 05/09/2024 10:15 AM EST To: Alvarez Kinney MD Please review BP check from today and advise. documented in this encounter Plan of Treatment Upcoming Encounters Date Type Department Care Team (Late st Contact Info) Description 05/29/2024 10:00 AM EDT Office Visit [facility] [address] [place] [phone] Name, MD Alvarez [address] [place] [phone] documented as of this encounter Visit Diagnoses Not on filedocumented in this encounter Additional Health Concerns Assessment Noted Time PHQ-9 Depression Total Score: 0 10/25/19 24 2:28 PM EDT documented as of this encounter Care Teams River Driver Relationship Specialty Start Date End Date Alvarez Kinney MD [address] [place] [phone] PCP - General Family Medicine 04/28/15 documented as of this encounter
--- OUTSIDE RECORDS SUMMARY | 2024-05-15 10:14 | XMS_ITS | Encounter Summary ---
Author Organization [employer] Address [address] [facility] [address] [place] [address] Care Team Providers Care Assembler Piano Name Role Phone Name, Alvarez DOMINIQUE Primary Care Provider [phone] Reason for Visit * Reason Onset Date Comments CHART PREP 04/25/2024 Encounter Details Date Type Department Care Team ([facility] st Contact Info) Description 04/25/2024 Telephone [facility] [address] [place] [address] [facility] Social History Tobacco Use Types Packs/Day Years [...] encounter Miscellaneous Notes * Telephone Encounter - Marlo Dejesus MA - 04/25/2024 9:29 AM EST Chart Prep Labs: done Images: done MRI Brain Vaccines due: yes pneumo, covid Referrals: none Screenings: none Overdue care gaps: none. documented in this encounter Plan of Treatment Upcoming Encounters Date Type Department Care Team (Late st Contact Info) Description 05/29/2024 10:00 AM EDT Office Visit [facility] [address] [place] [address] NameAlvarez MD [address] [place] [address] documented as of this encounter Visit Diagnoses Not on filedocumented in this encounter Additional Health Concerns Assessment Noted Time PHQ-9 Depression Total Score: 0 10/25/19 24 2:28 PM EDT documented as of this encounter Care Teams Assembler Piano Relationship Specialty Start Date End Date NameAlvarez MD [address] [place] [address] PCP - General Family Medicine 04/28/15 documented as of this encounter
--- OUTSIDE RECORDS SUMMARY | 2024-05-15 10:14 | XMS_ITS | Encounter Summary ---
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 Subjective Patient ID: Marcello Wright is a 58 y.o. male who presents for Follow-up. Patient had a follow-up televisit today. He has a personal history of left hemifacial spasm. The patient has this problem for several years. 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 Findings can produce the reported symptoms of left hemifacial spasm. He was already seen at [facility] neurosurgery by Dr. Grant and he was recommended surgical intervention once the effect of the last Botox injection past. Patient is interested in meeting with Dr. Grant again to plan the surgery. Review of Systems Constitutional: Negative for fever. Respiratory: Negative for cough. Neurological: See HPI Objective Physical Exam Vitals reviewed: televisit audio only. MR BRAIN WO Order: [id number] [facility] Diagnostic Imaging Department [address] [place] [address] Patient: JIM ROMANOTERESITA MejíaB./Age/Sex: 1965 - 58 - M Unit#: [id number] Location/Status: SPDIMRI/REG CLI Mnemonic/Ordering Site: BRAIN/[facility] Ordering Physician: SUKUMAR BOYKIN MD MR Brain WO - 11/22/23 - Report Status:Signed PROCEDURE: Brain MRI INDICATION: Facial spasm, twitching TECHNIQUE: Multiplanar, multisequence MRI of the brain Without contrast. COMPARISON: No priors available. FINDINGS: No acute infarct, mass effect, or intracranial hemorrhage. Brain parenchyma is normal in signal. No abnormal intracranial susceptibility artifact. Sella and foramen magnum are normal. Ventricles, sulci, and cisterns are normal in size and configuration. No hydrocephalus. Major intracranial arterial flow voids are present. Ectatic bilateral vertebral and proximal basilar artery flow voids displacing the left cisternal portions of the left 7th and 8th cranial nerves. Sinuses and mastoid air cells are clear. Orbits and extracranial soft tissues are normal. Calvarium is normal. IMPRESSION: No acute findings. 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 Findings can produce the reported symptoms of left hemifacial spasm. Dictating Physician: JC MOONEY MD Electronically Signed by: JC MOONEY MD Dic Date/Time: 11/23/23 1028 Sign date/Time: 11/23/23 1053 Exam End: 11/23/23 10:53 Specimen Collected: 11/22/23 08:48 Last Resulted: 11/23/23 10:53 Received From: [employer] Result Received: 01/03/24 09:30 Assessment/Plan Diagnoses and all orders for this visit: Clonic hemifacial spasm of muscle of left side of face Comments: I called [facility] neuro[place] office to see if Marcello needs a new referral or a new MRI. They will call me back and I will inform Marcello when I know. documented in this encounter Plan of Treatment Upcoming Encounters Date Type Department Care Team (Late st Contact Info) Description 05/29/2024 10:00 AM EDT Office Visit [facility] [address] [place] [address] Alvarez Kinney MD [address] [place] [address] documented as of this encounter Visit Diagnoses Diagnosis Clonic hemifacial spasm of muscle of left side of face- Primary documented in this encounter Additional Health Concerns Assessment Noted Time PHQ-9 Depression Total Score: 0 10/25/19 24 2:28 PM EDT documented as of this encounter Care Teams Stunt Driver Relationship Specialty Start Date End Date Alvarez Kinney MD [address] [place] [address] PCP - General Family Medicine 04/28/15 documented as of this encounter
--- OUTSIDE RECORDS SUMMARY | 2024-05-15 10:15 | XMS_ITS | Encounter Summary ---
Author Organization [employer] [facility] Address [address] [place] [address] 7 [place] [address] Care Team Providers Care Humanities And Languages Professor Name Role Phone NameAlvarez MD Primary Care Provider [phone] Encounter Details Date Type Department Care Team (Late st Contact Info) Description 01/27/2022 Abstract [facility] ADULT DENTAL [address] [place], [place] [id number] Dental, Provider, DDS Social History Tobacco Use Types Packs/Day Years Used Date Smoking Tobacco: Never Assessed Sex and Gender Information Value Date Recorded Sex Assigned at Male 01/04/2022 10:16 AM EDT Legal Sex Male 10:16 AM EDT Gender Identity Male 01/04/2022 10:16 AM EDT Sexual Orientation Straight 01/04/2022 10 :16 AM EDT documented as of this encounter Plan of Treatment Upcoming Encounters Date Type Department Care Team (Late st Contact Info) Description 05/29/2024 10:00 AM EDT Office Visit [facility] [address] [place] [address] NameAlvarez MD [address] [place] [address] documented as of this encounter Procedures Procedure Name Priority Date/Time Associated Diagnosis Comments 2 B(V) COMPOSITE FILLING Routine 022 12:00 AM EST 32 STEPHON COMPOSITE FILLING Routine 01/28/20 22 12:00 AM EST 31 O COMPOSITE FILLING Routine 2 12:00 AM EST 30 B COMPOSITE FILLING Routine 2 12:00 AM EST 18 B COMPOSITE FILLING Routine 2 12:00 AM EST 17 B COMPOSITE FILLING Routine 2 12:00 AM EST 16 O COMPOSITE FILLING Routine 2 12:00 AM EST 13 (V) COMPOSITE FILLING Routine 01/27/2022 12:00 AM EST 11 DF COMPOSITE FILLING Routine 01/28/20 12:00 AM EST 10 DF COMPOSITE FILLING Routine 01/28/20 12:00 AM EST 9 FI COMPOSITE FILLING Routine 2 12:00 AM EST 8 FI COMPOSITE FILLING Routine 2 12:00 AM EST 7 MDF COMPOSITE FILLING Routine 01/28/20 12:00 AM EST 6 MDFL COMPOSITE FILLING Routine 022 12:00 AM EST 4 O COMPOSITE FILLING Routine 01/27/2022 12:00 AM EST 20 O COMPOSITE FILLING Routine 2 12:00 AM EST 18 O AMALGAM FILLING Routine 01/27/2022 12:00 AM EST 14 LO AMALGAM FILLING Routine 01/27/2022 12:00 AM EST 2 GAGAN AMALGAM FILLING Routine 01/27/2022 12:00 AM EST 30 O AMALGAM FILLING Routine 01/27/2022 12:00 AM EST 17 O AMALGAM FILLING Routine 01/27/2022 12:00 AM EST 15 O AMALGAM FILLING Routine 01/27/2022 12:00 AM EST 1 O AMALGAM FILLING Routine 01/27/2022 1 2:00 AM EST 28 EXTRACTION Routine 01/27/2022 12:00 AM EST 21 EXTRACTION Routine 01/27/2022 12:00 AM EST 12 EXTRACTION Routine 01/27/2022 12:00 AM EST 5 EXTRACTION Routine 01/27/2022 12:00 AM EST documented in this encounter Visit Diagnoses Not on filedocumented in this encounter Care Teams Humanities And Languages Professor Relationship Specialty Start Date End Date Name, MD Alvarez [address] [place] [address] PCP - General Family Medicine 04/28/15 documented as of this encounter
--- OUTSIDE RECORDS SUMMARY | 2024-05-15 10:15 | XMS_ITS | Encounter Summary ---
Author Organization [employer] Address [address] [facility] [address] [address] 7t [place] [address] Care Team Providers Care Flap Presser Name Role Phone Name, Alvarez DOMINIQUE Primary Care Provider [phone] Encounter Details Date Type Department Care Team ([facility] st Contact Info) Description 04/30/2024 Orders Only [facility] MED[facility]INE [address] [place] [address] Name, MD Alvarez [address] [place], [place] [phone] Essential hypertension (Primary Dx) Social History Tobacco Use Types [...] of this encounter Progress Notes * Alvarez Kinney MD - 04/30/2024 12:31 PM EST I saw patient recently. He showed me BP readings at home that have been high. Readings are around 160/100. I will double the losartan. Recheck BMP next week. He is recommended to keep checking BP at home. Please give him a nurse visit next week. documented in this encounter Plan of Treatment Upcoming Encounters Date Type Department Care Team (Late st Contact Info) Description 05/29/2024 10:00 AM EDT Office Visit [facility] MED[facility]INE [address] [place] [address] Name, MD Alvarez [address] [place] [address] Scheduled Orders Name Type Priority Associated Diagnoses Orde r Schedule Basic Metabolic Panel Lab Routine Essential hypertension Expected: 04/30/2024 (Approximate), Expires: 04/30/2025 documented as of this encounter Visit Diagnoses Diagnosis Essential hypertension- Primary Unspecified essential hypertension documented in this encounter Additional Health Concerns Assessment Noted Time PHQ-9 Depression Total Score: 0 10/25/19 24 2:28 PM EDT documented as of this encounter Care Teams Flap Presser Relationship Specialty Start Date End Date Name, MD Alvarez [address] [place] [address] PCP - General Family Medicine 04/28/15 documented as of this encounter
--- OUTSIDE RECORDS SUMMARY | 2024-05-15 10:15 | XMS_ITS | Encounter Summary ---
Author Organization [employer] Address [address] [facility] [address] 7t [place] [address] Care Team Providers Care Cutter Barrel Drum Name Role Phone Name, Alvarez DOMINIQUE Primary Care Provider [phone] Encounter Details Date Type Department Care Team ([facility] st Contact Info) Description 04/30/2024 Telephone [facility] MED[facility]INE [address] [place] [address] Name, MD Alvarez [address] [place], [place] [phone] Social History Tobacco Use Types Packs/Day Years [...] encounter Miscellaneous Notes * Telephone Encounter - Kate Santos RN - 04/30/2024 3:31 PM EST Pt walked in in response to phone call. Advised pt of PCP recommendation. Pt reports agreement withplan and agrees to return for BP check with Blue team RN 05/09/24. * Telephone Encounter - Amelie Santillan RN - 04/30/2024 1:12 PM EST TC x 2 placed to pt via [employer] nursing home manager (Adebayo ID#[id number]) to inform of below PCP message. No answer, LVM to call office back and ask to speak to the blue team nurses. Alvarez Kinney MD at 04/30/2024 12:31 PM Status: Signed I saw patient recently. He showed me [...] Description 05/29/2024 10:00 AM EDT Office Visit [facility] [address] [place] [address] Name, MD Alvarez [address] [place] [address] documented as of this encounter Visit Diagnoses Not on filedocumented in this encounter Additional Health Concerns Assessment Noted Time PHQ-9 Depression Total Score: 0 10/25/19 24 2:28 PM EDT documented as of this encounter Care Teams Cutter Barrel Drum Relationship Specialty Start Date End Date Name, MD Alvarez [address] [place] [address] PCP - General Family Medicine 04/28/15 documented as of this encounter
--- OUTSIDE RECORDS SUMMARY | 2024-05-15 10:15 | XMS_ITS | Encounter Summary ---
Author Organization [employer] Address [address] [facility] 7t [place] [address] Care Team Providers Care Crumb Packer Name Role Phone Name, Alvarez DOMINIQUE Primary Care Provider [phone] Reason for Visit * Reason Comments Blood Pressure Check Encounter Details Date Type Department Care Team (Latest Contact Info) Description 05/09/2024 9:30 AM EST Clinical Support [facility]INE [address] [place] [address] Marguerite Trivedi, JENY Essential hypertension [I10] Social History Tobacco Use Types Packs/Day Years [...] AM EDT documented as of this encounter Last Filed Vital Signs Vital Sign Reading [...] Mass Index 29.88 05/09/2024 9:32 AM EST documented in this encounter Progress Notes * Marguerite Trivedi RN - 05/09/2024 9:30 AM EST S: Pt presented to visit to do BP with team nurse. At last ov recommendations made by PCP were I saw patient recently. He showed me BP readings at home that have been high. Readings are around 160/100. I will double the losartan. Recheck BMP next week. He is recommended to keep checking BP at homePlease give him a nurse visit next week. Pt denies cp, sob, blurred vision, dizziness, headaches, smoking and reports they only drink alcohol socially. Pt states they did take their BP med today andhave been taking it as prescribed. Pt states they do not check their BP daily and has not been documenting their readings. Pt reports they exercise once a week due to the weather. Pt states they usually have three cups of coffee with one teaspoon of maple syrup and whole milk. Pt reports sometimes they eat salty foods but does not consume a lot of vegetables. Pt states diet consist of chicken, steak, rice, salads, fruits ( mainly berries) , juice diluted with water and sandwiches. O: Pt rx Losartan (Cozaar) 100 MG tablet (Take 1 tablet (100 mg) by mouth Once per day.) A: Pt is alert, oriented and answerers questions appropriately. Lifestyle modifications implementedduring visit. LBP: 132/98 RBP: 138/96, HR: 85, T: 99.3 F, WT: 199 lbs 6.4 oz, O2: 96% RR: 18 P: Pt advised to follow a low sodium diet and continue taking their medications as rx. Pt advised to start checking their BP first in the morning and documenting their readings up until their next visit. Pt advised to complete blood work that was ordered fasting and exercise at least 30 minutes a day or as tolerated. Pt advised we'll send a provider a message to review and call them back to discuss any modifications to their plan of care. Pt expressed understanding and message forwarded to PCP for review. documented in this encounter Plan of Treatment Upcoming Encounters Date Type Department Care Team (Late st Contact Info) Description 05/29/2024 10:00 AM EDT Office Visit [facility] [address] [place] [address] Name, MD Alvarez [address] [place] [address] documented as of this encounter Visit Diagnoses Diagnosis Essential hypertension [I10] Unspecified essential hypertension documented in this encounter Additional Health Concerns Assessment Noted Time PHQ-9 Depression Total Score: 0 10/25/19 24 2:28 PM EDT documented as of this encounter Care Teams Crumb Packer Relationship Specialty Start Date End Date Name, MD Alvarez [address] [place] [address] PCP - General Family Medicine 04/28/15 documented as of this encounter
--- OUTSIDE RECORDS SUMMARY | 2024-05-15 10:15 | XMS_ITS | Encounter Summary ---
Author Organization [employer] [facility] Address [address] [place] [address] 7 [place] [address] Care Team Providers Care Public Address System Installer Name Role Phone Name, Alvarez DOMINIQUE Primary Care Provider [phone] Encounter Details Date Type Department Care Team (Latest Contact Info) Description 03/29/2019 Abstract [facility] CONVERSIONS Dental, Provider, DDS Social History Tobacco Use [...] Description 05/29/2024 10:00 AM EDT Office Visit [facility] MEDICINE [address] [place] [address] Alvarez Kinney MD [address] [place] [address] documented as of this encounter Visit Diagnoses Not on filedocumented in this encounter Care Teams Public Address System Installer Relationship Specialty Start Date End Date Alvarez Kinney MD [address] [place] [address] PCP - General Family Medicine 04/28/15 documented as of this encounter
--- OUTSIDE RECORDS SUMMARY | 2024-05-15 10:15 | XMS_ITS | Encounter Summary ---
Author Organization [employer] [facility] Address [address] [place] [address] 7 [place] [address] Care Team Providers Care Coverstitch Machine Operator Name Role Phone Name, Alvarez DOMINIQUE Primary Care Provider [phone] Encounter Details Date Type Department Care Team (Latest Contact Info) Description 04/30/2020 Abstract [facility] CON[facility] Dental, Provider, DDS Social History [...] EDT Office Visit [facility] [address] [place] [address] Alvarez Kinney MD [address] [place] [address] documented as of this encounter Visit Diagnoses Not on filedocumented in this encounter Care Teams Coverstitch Machine Operator Relationship Specialty Start Date End Date Alvarez Kinney MD [address] [place] [address] PCP - General Family Medicine 04/28/15 documented as of this encounter
--- OUTSIDE RECORDS SUMMARY | 2024-05-15 10:15 | XMS_ITS | Encounter Summary ---
Author Organization [employer] [facility] Address [address] [place] [address] 7 [place] [address] Care Team Providers Care Convention Services Director Name Role Phone Name, Alvarez DOMINIQUE Primary Care Provider [phone] Encounter Details Date Type Department Care Team (Latest Contact Info) Description 08/15/2018 Abstract [facility] CONVERSIONS Dental, Provider, DDS Social History [...] Description 05/29/2024 10:00 AM EDT Office Visit [facility] MEDIC[facility] [address] [place] [address] Alvarez Kinney MD [address] [place] [address] documented as of this encounter Visit Diagnoses Not on filedocumented in this encounter Care Teams Convention Services Director Relationship Specialty Start Date End Date Alvarez Kinney MD [address] [place] [address] PCP - General Family Medicine 04/28/15 documented as of this encounter
--- OUTSIDE RECORDS SUMMARY | 2024-05-15 10:15 | XMS_ITS | Encounter Summary ---
Author Organization [employer] Address [address] 7t [place] [address] Care Team Providers Care Verifier Operator Name Role Phone Name, Alvarez DOMINIQUE Primary Care Provider [phone] Encounter Details Date Type Department Care Team (Latest Contact Info) Description 04/25/2024 Travel Social History Tobacco Use Types Packs/Day [...] Description 05/29/2024 10:00 AM EDT Office Visit [facility] MEDICINE [address] [place] [address] Name, MD Alvarez [address] [place] [address] documented as of this encounter Visit Diagnoses Not on filedocumented in this encounter Additional Health Concerns Assessment Noted Time PHQ-9 Depression Total Score: 0 10/25/19 24 2:28 PM EDT documented as of this encounter Care Teams Verifier Operator Relationship Specialty Start Date End Date NameAlvarez MD [address] [place] [address] PCP - General Family Medicine 04/28/15 documented as of this encounter
[2024-05-15 12:23] LABS: Anion Gap 10 (12-20); Blood Urea Nitrogen 16 mg/dL (9-16); Calcium 8.9 mg/dL (8.4-10.2); Carbon Dioxide 29 mmol/L (22-29); Chloride 108 mmol/L (96-108); Estimated Glomerular Filt Rate > 60; Glucose Random 94 mg/dL (60-115); Sodium 143 mmol/L (135-145)
== END 2024-05-15 09:13 | disposition home or self-care (01) ==
LOC: HO.HHCL 09:12
PROVIDERS: Visit Provider Internal Medicine Geriatric Medicine
DX: I10 Essential (primary) hypertension (principal)
CPT/HCPCS: 36415; 80048

== ENCOUNTER 2024-11-30 08:38 | Outpatient (REF) | payer OTHER, SELFPAY ==
--- OUTSIDE RECORDS SUMMARY | 2024-11-30 09:00 | XMS_ITS | Encounter Summary ---
Author Organization [employer] Address [address] [place] [address] 7 [place] [address] Care Team Providers Care Steam Meter Reader Name Role Phone Name, Alvarez DOMINIQUE Primary Care Provider [phone] Encounter Details Date Type Department Care Team (Latest Contact Info) Description 08/15/2018 Abstract [facility] CONVERSIONS Dental, Provider, DDS Social History Tobacco [...] Care Team (Late st Contact Info) Description 04/03/2025 3:00 PM EST Office Visit [facility] ADULT DENTAL [address] [place] [address] Leny, Gabriela [address] [place] [address] documented as of this encounter Visit Diagnoses Not on filedocumented in this encounter Care Teams Steam Meter Reader Relationship Specialty Start Date End Date Name, MD Alvarez [address] [place] [address] PCP - General Family Medicine 04/28/15 documented as of this encounter
--- OUTSIDE RECORDS SUMMARY | 2024-11-30 09:00 | XMS_ITS | Encounter Summary ---
Author Organization [employer] Address [address] [place] [address] 7 [place] [address] Care Team Providers Care Song Writer Name Role Phone Name, Alvarez DOMINIQUE Primary Care Provider [phone] Encounter Details Date Type Department Care Team (Late st Contact Info) Description 01/27/2022 Abstract [facility] ADULT DENTAL [address] [place] [address] Dental, Provider, DDS Social History Tobacco Use [...] Description 04/03/2025 3:00 PM EST Office Visit [facility] ADULT DENTAL [address] [place] [address] Gabriela Michele [address] [place] [address] documented as of this encounter Procedures Procedure [...] AM EST 17 B COMPOSITE FILLING Routine 12:00 AM EST 16 O COMPOSITE FILLING Routine 12:00 AM EST 13 (V) COMPOSITE FILLING Routine 01/27/2022 12:00 AM EST 11 DF COMPOSITE FILLING Routine 01/28/20 12:00 AM EST 10 DF COMPOSITE FILLING Routine 01/28/20 12:00 AM EST 9 FI COMPOSITE FILLING Routine 12:00 AM EST 8 FI COMPOSITE FILLING Routine 12:00 AM EST 7 MDF COMPOSITE FILLING Routine 01/28/20 12:00 AM EST 6 MDFL COMPOSITE FILLING Routine 022 12:00 AM EST 4 O COMPOSITE FILLING Routine 01/27/2022 12:00 AM EST 20 O COMPOSITE FILLING Routine 12:00 AM EST 18 O AMALGAM FILLING [...] on filedocumented in this encounter Care Teams Song Writer Relationship Specialty Start Date End Date Name, MD Alvarez [address] [place] [address] PCP - General Family Medicine 04/28/15 documented as of this encounter
--- OUTSIDE RECORDS SUMMARY | 2024-11-30 09:00 | XMS_ITS | Encounter Summary ---
Author Organization [employer] Address [address] [place] [address] 7 [place] [address] Care Team Providers Care Career And Technology Education Teacher Name Role Phone Name, Alvarez DOMINIQUE Primary Care Provider [phone] Encounter Details Date Type Department Care Team (Latest Contact Info) Description 03/29/2019 Abstract [facility] CONVERSIONS Dental, Provider, DDS Social History [...] Description 04/03/2025 3:00 PM EST Office Visit [facility] ADULT DENTAL [address] [place] [address] Leny, Gabriela [address] [place] [address] documented as of this encounter Visit Diagnoses Not on filedocumented in this encounter Care Teams Career And Technology Education Teacher Relationship Specialty Start Date End Date Name, MD Alvarez [address] [place] [address] PCP - General Family Medicine 04/28/15 documented as of this encounter
--- OUTSIDE RECORDS SUMMARY | 2024-11-30 09:00 | XMS_ITS | Clinical Summary ---
Author Organization [employer] Address [address] [facility] [address] [place] [address] Care Team Providers Care Travel Registered Nurse Icu Name Role Phone Name, Alvarez DOMINIQUE Primary Care Provider [phone] Allergies No known active allergies Medications Botox 100 units injection 3 Active Blood Pressure kitIndications:Es sential hypertension Use twice a day 1 kit 4 Active losartan-hydroCHL OROthiazide (Hyzaar) 100-12.5 MG tablet Take 1 tablet by mouth Once per day. 30 tablet 11 5 05/25/19 26 Active gabapentin (Neurontin) 300 MG capsule TAKE 1 CAPSULE POR V A ORAL RACHEL VECES AL D A Active MAGNESIUM GLUCONATE PO Take by mouth. 5 Active mometasone (Elocon) 0.1 % ointment Apply topically Once per day. 45 g 2 5 11/24/19 26 Active Active Problems Problem Noted Date Diagnosed Date [...] of viral myocarditis. Patient was treated in [place] and had a negative cardiac cath Encounters Date Type Department Care Team Description 11/23/2024 11:30 AM EDT Office Visit [facility] MEDICINE [address] [place] [address] Name, MD Alvarez Essential hypertension (Primary Dx); Rash 11/23/2024 Travel 11/22/2024 Telephone [facility] MEDICINE [address] [place] [address] Diana Valdovinos MA chart prep 09/18/2024 2:00 PM EDT Office Visit [facility] ADULT DENTAL [address] [place] [address] Gabriela Michele Dental plaque (Primary Dx) from Last 3 Months Immunizations Immunization Administration Dates Next Due Influenza Injectable Quadriv [...] pur e alcohol) Alcohol Answer Date Recorded How often do you have a drink containing alcohol ? 3 11/23/2024 How many drinks containing a lcohol do you have on a typical day when you are drinking? 1 11/23/2024 How often do you have six or more drinks on one occasion? 1 11/23/2024 Depression Answer Date Recorded Patient Health Questionnaire-9 Score 0 11/23/2024 Patient Health Questionnaire-9 Score 0 11/23/2024 Last PHQ-9: Questionnaire Data Not on file 0 11/23/2024 Housing Stability Answer Date Recorded What is your housing situation today? I have sachin lexus 11/23/[address] you li ve. Do you have problems with any of the following? None of the above 11/23/2024 Food Insecurity Answer Date Recorded Within the past 12 months, y ou worried that your food would run out before you got money to buy more: Never True 11/23/2024 Within the past 12 months,th e food you bought just didn't last and you didn't have enough money to get more: Never True Transportation Answer Date Recorded In the past 12 months, has l ack of transportation kept you from medical appts, meetings, work or from getting things needed for daily living? No 11/23/2024 Utilities Answer Date Recorded In the past 12 months, has t he electric, gas, oil or water company threatened to shut off services in your home? No 11/23/2024 Depression Answer Date Recorded Patient Health Questionnaire-2 Score 0 11/23/2024 Internet Access Answer Date Recorded Internet Access Q1 Yes 11/23/2024 Internet Access Q2 Not on file 11/23/2024 Sex and Gender Information Value Date Recorded Sex Assigned at Male 01/04/2022 10:16 AM EDT Legal Sex Male 10:16 AM EDT Gender Identity Male 01/04/2022 10:16 AM EDT Sexual Orientation Straight 01/04/2022 10 :16 AM EDT Last Filed Vital Signs Vital Sign Reading Time Taken Comments Blood Pressure 142/87 11/23/2024 11:45 AM EDT Pulse 74 11/23/2024 11:45 AM EDT Temperature 36.1 C (97 F) 11/23/2024 11:45 AM EDT Respiratory Rate 18 11/23/2024 11:45 AM EDT Oxygen Saturation 98% 11/23/2024 11:45 AM EDT Inhaled Oxygen Concentration - - Weight 90.7 kg (200 lb) 11/23/2024 11:45 AM EDT Height 170.2 cm (5' 7 ) 11/23/2024 11:45 AM EDT Body Mass Index 31.32 11/23/2024 11:45 AM EDT Plan of Treatment Upcoming Encounters Date Type Department Care Team (Late st Contact Info) Description 04/03/2025 3:00 PM EST Office Visit [facility] ADULT DENTAL [address] [place] [address] Leny, Gabriela [address] [place] [address] Health Maintenance Due Date Last Done Comments CT Colonography 1966 FIT DNA/Cologuard 1966 FIT 1966 FOBT 1966 HIV Screening 1966 Sigmoidoscopy 1966 Hepatitis C Screening 1984 Hepatitis B Vaccines (1 of 3 - 19+ 3-dose series) 1985 Pneumococcal Vaccine: 50+ Years (1 of 1 - PCV) 2016 Dental Oral Exam 08/12/2022 02/10/2022 Dental Prophylaxis 12/05/2022 06/04/2022, 02/10/2022 Dental X-Ray: Bitewings 02/11/2023 02/10/2022 Dental X-Ray: Full Mouth 05/01/2023 04/30/2020 COVID-19 Vaccine ( season) 2024 07/27/2021, 02/03/2021, 03/31/2020, Additional history exists Influenza Vaccine (#1) 2024 , 01/18/2023, 11/19/2021, Additional history exists Alcohol/Substance Use Screening 11/23/2025 11/23/2024 Depression Screening 11/23/2025 11/23/2024, 11/24/19 25 Disability Screening 11/23/2025 11/23/2024 SDOH Screening 11/23/2025 11/23/2024 Tobacco Screening 11/23/2025 11/23/2024 Colonoscopy 02/23/2026 02/23/2021 Colorectal Cancer Screening 02/23/2026 Lipid Panel 01/01/2029 01/02/2024, 09/0 08/2023, 06/28/2023, Additional history exists DTaP/Tdap/Td Vaccines (3 - Td or Tdap) 08/12/2031 08/11/2021, 08/11/2011 RSV Patients and Patients Aged 60 years or older (1 - 1-dose 75+ series) 2041 Zoster Vaccines Completed 01/16/2019, 11/09/2018 HIB Vaccines Aged Out No longer eligi [...] patient's age to complete this topic Meningococcal B Vaccine Aged Out No l onger eligible based on patient's age to complete this topic Meningococcal Vaccine Aged Out No ussy elli eligible based on patient's age to complete this topic RSV under 20 months Aged Out No longe r eligible based on patient's age to complete this topic Rotavirus Vaccines Aged Out No longer eligible based on patient's age to complete this topic Procedures Procedure Name Priority Date/Time Associated Diagnosis Comments EMPLOYEE ADULT PROPHYLAXIS Routine 09/18/2024 2:00 PM EDT LIPID PANEL, STANDARD Routine 01/02/2024 9:24 AM [...] 9:24 AM EDT) Triglycerides 152(H) <150 mg/dL [facility] Comment:Desirable Triglyceri de: less than 150 mg/dLBorderline High Triglyceride 150-199 mg/dLHigh Triglyceride: 200-499 mg/dLVery High Triglyceride: greater than or equal to 5OO mg/dL Cholesterol 206(H) <200 mg/dL [facility] Comment:Desirable Cholestero l: less than 200 mg/dLBorderline High Cholesterol: 200-239 mg/dLHigh Cholesterol: greater than 239 mg/dL LDL Cholesterol Calculated 128(H) <100 mg/dL [facility] Comment:Desirable LDL: less than 100 mg/dLNear Optimal/Above Optimal LDL: 110- 129 mg/dLBorderline High LDL: 130-159 mg/dLHigh LDL: 160-189 mg/dLVery High LDL: greater than or equal to 190 mg/dL HDL Cholesterol 48 >40 mg/dL [facility] Comment:Desirable HDL: great er than 40 mg/dL Note: This HDL assay may give artificially low results in patients with liver disease. Blood Venous blood specimen / Unknown 01/02/2024 9:24 AM EDT 01/02/2024 11:05 AM EDT Alvarez Kinney MD LAB BLOOD ORDERABLES Final Resul t [facility] [address] [place] [address] [phone] * (ABNORMAL) Colonoscopy (02/23/2021) Colonoscopy Abnormal(A ) Normal Venita Edgar MD HEALTH MAINTENANCE Final Result from Last 3 Months or Most Recently Relevant to Health Maintenance Insurance [facility] , [address] [place] [address] DENTAL - [facility] Care Teams Travel Registered Nurse Icu Relationship Specialty Start Date End Date Name, MD Alvarez [address] [place] [id number] PCP - General Family Medicine 04/28/15
--- OUTSIDE RECORDS SUMMARY | 2024-11-30 09:00 | XMS_ITS | Encounter Summary ---
Author Organization [employer] Address [address] [place] [address] [address] [place] [address] Care Team Providers Care Community Living Specialist Name Role Phone Name, Alvarez DOMINIQUE Primary Care Provider [phone] Encounter Details Date Type Department Care Team (Latest Contact Info) Description 04/30/2020 Abstract [facility] CONVERSIONS Dental, Provider, DDS Social History Tobacco [...] Description 04/03/2025 3:00 PM EST Office Visit [facility] ADULT DENTAL [address] [place] [address] Leny, Gabriela [address] [place] [address] documented as of this encounter Visit Diagnoses Not on filedocumented in this encounter Care Teams Community Living Specialist Relationship Specialty Start Date End Date Name, MD Alvarez [address] [place] [address] PCP - General Family Medicine 04/28/15 documented as of this encounter
[2024-11-30 11:54] LABS: Alanine Aminotransferase 48 U/L (0-40); Albumin Level 4.8 g/dL (3.5-5.0); Alkaline Phosphatase 58 U/L (39-117); Anion Gap 10 (12-20); Aspartate Amino Transferase 36 U/L (5-37); Blood Urea Nitrogen 19 mg/dL (9-16); Calcium 9.4 mg/dL (8.4-10.2); Carbon Dioxide 32 mmol/L (22-29); Chloride 105 mmol/L (96-108); Cholesterol 237 mg/dL (<200); Estimated Glomerular Filt Rate > 60; HDL Cholesterol 48 mg/dL (>40); Potassium 4.0 mmol/L (3.3-5.1); Sodium 143 mmol/L (135-145); Total Protein 7.5 g/dL (6.5-8.0); Triglycerides 87 mg/dL (<150)
== END 2024-11-30 08:39 | disposition home or self-care (01) ==
LOC: HO.HHCL 08:38
PROVIDERS: PCP Internal Medicine Geriatric Medicine; Visit Provider Internal Medicine Geriatric Medicine
DX: I10 Essential (primary) hypertension (principal); R21 Rash and other nonspecific skin eruption
CPT/HCPCS: 36415; 80053; 80061